=== PATIENT | male | born 1940 | race Caucasian/White ===

== ENCOUNTER → 2023-10-01 09:35 | Outpatient (REF) | payer MEDICARE, OTHER, SELFPAY ==
[2023-10-01 09:45] VITALS: BP 107/69; BP_SYST 49
[2023-10-01] MEDS: ANCEF 10 IV (10:27)
[2023-10-01 10:30] VITALS: BP 129/60
[2023-10-01 11:30] VITALS: BP 126/80; BP_SYST 62
[2023-10-01 11:47] VITALS: BP 118/72
[2023-10-01 12:20] VITALS: BP 118/72
== END ==
LOC: RADI 09:35
PROVIDERS: ATTENDING PHYSICIAN Internal Medicine Hematology & Oncology; FAMILY PHYSICIAN Family Medicine
DX: C01 Malignant neoplasm of base of tongue (principal)
CPT/HCPCS: 36561; 76937; 77001; 99152; 99153; C1788

== ENCOUNTER → 2023-10-10 11:53 | Outpatient (REF) | payer MEDICARE, OTHER, SELFPAY ==
[2023-10-10 13:17] LABS: % Basophils 0.2 % (0-2); % Eosinophils 0.8 % (0-6); % Immature Granulocytes 0.2 % (0-0.5); % Neutrophils 58.8 % (42.2-75.2); Absolute Lymphocytes 1.5 10^3/uL (1.2-3.4); Absolute Monocytes 0.6 10^3/uL (0.1-0.6); Absolute Neutrophils 3.1 10^3/uL (1.4-6.5); Hemoglobin 13.1 g/dL (13.0-18.0); Mean Corp Hgb Conc. 33.6 g/dL (33.0-37.0); Mean Corpuscular Hgb 28.9 pg (27.0-31.0); Mean Corpuscular Volume 85.9 fL (80.0-94.0); Nucleated Red Blood Cells % 0 % (-); Platelet Count 139 10^3/uL (130-400); Red Blood Cell Count 4.54 10^6/uL (4.70-6.10); Red Cell Dist. Width 15.1 % (11.5-14.5); White Blood Cell Count 5.3 10^3/uL (4.8-10.8)
[2023-10-10 14:03] LABS: ALT (SGPT) 12 U/L (0-50); AST (SGOT) 26 U/L (17-59); Albumin 3.6 g/dl (3.5-5.0); Alkaline Phosphatase 49 U/L (38-126); Blood Urea Nitrogen 30 mg/dl (9-20); Calcium 9.3 mg/dl (8.4-10.2); Carbon Dioxide 29 mmol/L (22-30); Chloride 98 mmol/L (98-107); Glucose 94 mg/dl (70-99); Potassium 3.9 mmol/L (3.5-5.1); Sodium 137 mmol/L (135-145); Total Bilirubin 0.9 mg/dl (0.2-1.3); Total Protein 6.2 g/dl (6.3-8.2); eGFR > 60.00
== END ==
LOC: REG 11:53
PROVIDERS: ATTENDING PHYSICIAN Internal Medicine Hematology & Oncology; FAMILY PHYSICIAN Family Medicine
DX: C01 Malignant neoplasm of base of tongue (principal); R64 Cachexia; G89.3 Neoplasm related pain (acute) (chronic)
CPT/HCPCS: 36415; 80053; 85025

== ENCOUNTER → 2023-10-15 09:46 | Outpatient (REF) | payer MEDICARE, OTHER, SELFPAY ==
[2023-10-15 10:23] LABS: % Eosinophils 0.6 % (0-6); % Immature Granulocytes 0.3 % (0-0.5); % Lymphocytes 19.9 % (20.5-51.1); % Monocytes 9.9 % (1.7-9.3); % Neutrophils 69.3 % (42.2-75.2); Absolute Lymphocytes 1.2 10^3/uL (1.2-3.4); Absolute Monocytes 0.6 10^3/uL (0.1-0.6); Absolute Neutrophils 4.3 10^3/uL (1.4-6.5); Hematocrit 35.3 % (39.0-52.0); Hemoglobin 11.9 g/dL (13.0-18.0); Mean Corp Hgb Conc. 33.7 g/dL (33.0-37.0); Mean Corpuscular Hgb 29.5 pg (27.0-31.0); Mean Corpuscular Volume 87.4 fL (80.0-94.0); Mean Platelet Volume 10.4 fL (7.4-10.4); Nucleated Red Blood Cells % 0 % (-); Platelet Count 163 10^3/uL (130-400); Red Blood Cell Count 4.04 10^6/uL (4.70-6.10); Red Cell Dist. Width 14.9 % (11.5-14.5); White Blood Cell Count 6.2 10^3/uL (4.8-10.8)
[2023-10-15 10:39] LABS: Blood Urea Nitrogen 29 mg/dl (9-20); Calcium 8.6 mg/dl (8.4-10.2); Carbon Dioxide 30 mmol/L (22-30); Chloride 102 mmol/L (98-107); Glucose 92 mg/dl (70-99); Magnesium 1.9 mg/dl (1.6-2.3); Sodium 133 mmol/L (135-145); eGFR > 60.00
== END ==
LOC: REG 09:46
PROVIDERS: ATTENDING PHYSICIAN Internal Medicine Hematology & Oncology; FAMILY PHYSICIAN Family Medicine
DX: C01 Malignant neoplasm of base of tongue (principal); R64 Cachexia; G89.3 Neoplasm related pain (acute) (chronic)
CPT/HCPCS: 36415; 80048; 83735; 85025

== ENCOUNTER → 2023-10-22 14:11 | Outpatient (REF) | payer MEDICARE, OTHER, SELFPAY ==
[2023-10-22 11:06] LABS: Blood Urea Nitrogen 61 mg/dl (9-20); Carbon Dioxide 25 mmol/L (22-30); Chloride 101 mmol/L (98-107); Glucose 112 mg/dl (70-99); Magnesium 1.8 mg/dl (1.6-2.3); Sodium 131 mmol/L (135-145); eGFR 7.76
== END ==
LOC: OIDL 14:11
PROVIDERS: ATTENDING PHYSICIAN Nurse Practitioner Adult Health
DX: C01 Malignant neoplasm of base of tongue (principal)
CPT/HCPCS: 80048; 83735